=== PATIENT | female | born 1995 | race Two or more races ===

== ENCOUNTER 2019-03-29 19:13 | Emergency (ER) | payer MEDICAID ==
[~2019-03-29] VITALS: Ht 152.4 cm; Wt 68.0 kg
[2019-03-30 00:02] LABS: CLARITY URINE CLEAR (CLEAR); COLOR URINE YELLOW (YELLOW); KETONES URINE 2+ (NEGATIVE); LEUKOCYTE ESTERASE URINE NEGATIVE (NEGATIVE); NITRITE URINE NEGATIVE (NEGATIVE); OCCULT BLOOD URINE NEGATIVE (NEGATIVE); PROTEIN URINE NEGATIVE (NEGATIVE); SPECIFIC GRAVITY URINE 1.013 (1.005-1.030); UROBILINOGEN URINE 0.2 E.U./dL (0.2-1.0)
[2019-03-30 00:59] VITALS: BP 101/75
== END 2019-03-30 01:00 | disposition home or self-care (01) ==
LOC: ER 19:13
DX: F43.20 Adjustment disorder, unspecified (principal); R00.2 Palpitations; R06.00 Dyspnea, unspecified; J06.9 Acute upper respiratory infection, unspecified
CPT/HCPCS: 71045; 81003; 93005; 99284